=== PATIENT | male | born 1980 | race Two or more races ===

== ENCOUNTER 2020-09-15 10:58 | Emergency (ER) | payer MEDICAID ==
[2020-09-15] MEDS ORDERED: Sodium Chloride 0.9% 10 ML Syringe FLUSH PRN (11:21)
--- NOTE | 2020-09-15 11:27 | EDM.PDOC ---
ED HPI GENERAL MEDICAL PROBLEM - General Chief Complaint: Cardiovascular Problem Stated Complaint: HIGH BP Time Seen by Provider: 09/15/20 11:08 Source of Information: Reports: Patient, RN Notes Reviewed History Limitations: Reports: No Limitations - History of Present Illness INITIAL COMMENTS - FREE TEXT/NARRATIVE: Patient is a 40-year-old male who presents to the ED for his elevated blood pressure reading. Patient notes that he lost his job in January 2020, and has been at home with his , and 3 young children during this time. He also notes that stress levels seem to be quite high in the home. 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 It was at the health checkup for the new job, that his blood pressure was re vealed to be high at 177 systolically. They referred him to a clinic or ER for further management. He is denying any headache, blurred vision or double vision, any dizziness or lightheadedness, no chest pain. He is not short of breath, no has no cough or other sick symptoms. He states that he is not aware of any high blood pressure at home in the past. - Related Data Allergies Allergy/AdvReac Type Severity Reaction Status Date / Time No Known Allergies Allergy Verified 09/15/20 11:11 Home Meds: Home Meds . [No Known Home Meds] 09/15/20 [History] Past Medical History - Past Health History Medical/Surgical History: Denies Medical/Surgical History ED ROS GENERAL - Review of Systems Review Of Systems: Comprehensive ROS is negative, except as noted in HPI. ED EXAM, GENERAL - Physical Exam Exam: See Below Exam Limited By: No Limitations General Appearance: Alert, WD/WN, No Apparent Distress Respiratory/Chest: No Respiratory Distress, Lungs Clear, Normal Breath Sounds, No Accessory Muscle Use, Chest Non-Tender Cardiovascular: Normal Peripheral Pulses, Regular Rate, Rhythm, No Murmur Peripheral Pulses: 2+: Radial (L), Radial (R) GI/Abdominal: Normal Bowel Sounds, Soft, Non-Tender, No Distention, No Mass Extremities: Normal Inspection, Normal Capillary Refill Neurological: Alert, Oriented, Normal Cognition, No Motor/Sensory Deficits Psychiatric: Normal Affect, Normal Mood Skin Exam: Warm, Dry, Intact, Normal Color, No Rash #1 Interpretation EKG Date: 12/03/20 Time: 11:29 Rhythm: NSR Rate (Beats/Min): 84 [place]: Normal P-Wave: Present QRS: Normal ST-T: Normal QT: Normal Comparison: NA - No Prior EKG EKG Interpretation Comments: No obvious ischemia or acute ST changes noted, reviewed by myself and Dr. Magaña. Course - Vital Signs Last Recorded V/S: Last Vital Signs Temp 97.0 F 09/15/20 11:08 Pulse 78 09/15/20 11:08 Resp 14 09/15/20 11:08 BP 164/112 H 09/15/20 11:45 Pulse Ox 98 09/15/20 11:30 - Orders/Labs/Meds Orders: Active Orders 24 hr Category Date Time Status EKG Documentation Completion [RC] STAT Care 09/15/20 11:21 Ordered Peripheral IV Care [RC] . DIRECTED Care 09/15/20 11:21 Ordered Chest 1V Frontal [CR] Stat Exams 09/15/20 11:21 Ordered Sodium Chloride 0.9% [Saline Flush] Med 09/15/20 11:21 Ordered 10 ml FLUSH ASDIRECTED PRN Peripheral IV Insertion Adult [OM.PC] Stat Oth 09/15/20 11:21 Ordered Medication Orders Sodium Chloride (Saline Flush) 10 ml FLUSH ASDIRECTED PRN PRN Reason: Keep Vein Open Last Admin: 09/15/20 11:25 Dose: 10 ml Documented by: TITO Labs: Laboratory Tests 09/15/20 09/15/20 09/15/20 Range/Units 11:15 11:15 11:15 WBC 6.06 (4.23-9.07) K/mm3 RBC 5.39 (4.63-6.08) M/mm3 Hgb 15.5 (13.7-17.5) gm/dl Hct 43.1 (40.1-51.0) % MCV 80.0 (79.0-92.2) fl MCH 28.8 (25.7-32.2) pg MCHC 36.0 H (32.2-35.5) g/dl RDW Std Deviation 38.5 (35.1-43.9) fL Plt Count 180 (163-337) K/mm3 MPV 11.0 (9.4-12.3) fl Neut % (Auto) 52.2 (34.0-67.9) % Lymph % (Auto) 40.8 (21.8-53.1) % [place] % (Auto) 5.8 (5.3-12.2) % Eos % (Auto) 0.7 L (0.8-7.0) Baso % (Auto) 0.3 (0.1-1.2) % Neut # (Auto) 3.17 (1.78-5.38) K/mm3 Lymph # (Auto) 2.47 (1.32-3.57) K/mm3 [place] # (Auto) 0.35 (0.30-0.82) K/mm3 Eos # (Auto) 0.04 (0.04-0.54) K/mm3 Baso # (Auto) 0.02 (0.01-0.08) K/mm3 PT 10.8 (9.7-12.0) SECONDS INR 1.01 APTT 26.8 (21.7-31.4) SECONDS Sodium 136 (136-145) mEq/L Potassium 3.7 (3.5-5.1) mEq/L Chloride 101 (98-107) mEq/L Carbon Dioxide 26 (21-32) mEq/L Anion Gap 12.7 (5-15) BUN 22 H (7-18) mg/dL Creatinine 1.2 (0.7-1.3) mg/dL Est Cr Clr Drug Dosing 88.90 mL/min Estimated GFR (MDRD) > 60 (>60) mL/min BUN/Creatinine Ratio 18.3 H (14-18) Glucose 244 H (74-106) mg/dL Calcium 9.2 (8.5-10.1) mg/dL Magnesium 1.9 (1.8-2.4) mg/dl Total Bilirubin 1.0 (0.2-1.0) mg/dL AST 129 H (15-37) U/L ALT 344 H (16-63) U/L Alkaline Phosphatase 81 (46-116) U/L Troponin I < 0.017 (0.00-0.056) ng/mL Total Protein 8.3 H (6.4-8.2) g/dl Albumin 3.6 (3.4-5.0) g/dl Globulin 4.7 gm/dL Albumin/Globulin Ratio 0.8 L (1-2) Meds: Medications Generic Name Dose Route Start Last Admin Trade Name Cynthia PRN Reason Stop Dose Admin Sodium Chloride 10 ml 09/15/20 11:21 09/15/20 11:25 Saline Flush FLUSH 10 ml ASDIRECTED PRN Administration Keep Vein Open Discontinued Medications Generic Name Dose Route Start Last Admin Trade Name Freq PRN Reason Stop Dose Admin Hydrochlorothiazide 25 mg 09/15/20 12:05 Hydrochlorothiazide PO 09/15/20 12:06 ONETIME ONE - Re-Assessments/Exams Free Text/Narrative Re-Assessment/Exam: 09/15/20 11:28 Patient presents to the ED for evaluation of his elevated blood pressure. We will get some baseline labs to see if there is any underlying metabolic abnormalities. We will keep an eye on his blood pressure while being in the ER, and hope that lowers itself otherwise he might have to start on some low-dose blood pressure medication. 09/15/20 12:13 Patient's blood pressure has come down to 165/114. This is still slightly elevated, and I would assume that the possible employer that sent him here would like his blood pressure little bit lower than this. We will start him on 25 mg hydrochlorothiazide daily for initial management and have him follow-up with regular care provider. Departure - Departure Time of Disposition: 12:14 Disposition: Home, Self-Care 01 Condition: Good Clinical Impression: Elevated blood pressure reading in office without diagnosis of hypertension, Elevated random blood glucose level Instructions: Preventing Hypertension, Hyperglycemia, [id number] Referrals: PCP,None [Primary Care Provider] - Forms: ED Department Discharge Additional Instructions: You were evaluated in the ER today for your elevated blood pressure readings. Your blood pressure did come down to an acceptable level to be discharged from the ER, however you will be started on a low-dose blood pressure medication to help further lower this number. Please take 1 tablet daily to help manage your blood pressure. In order to accurately take your blood pressure, you will need to do this at least twice a day, sit down in a calm cool collected state, for at least a minute or 2 and then take your blood pressure and record this number on a sheet of paper. Your blood sugar was also elevated at today's visit, please try to be more wary of your dietary choices. If you did not have a primary care provider already, I recommend that you follow-up with a provider in any clinic, any family practice provider would be able to provide you with the services. Our clinic telephone number [phone], the [facility] number is [phone]. Please call in the morning to obtain an appointment with the provider, for follow-up of your symptoms that prompted your ER visit today. Please return to the ER at any time if symptoms change or worsen. Sepsis Event Note (ED) - Evaluation Sepsis Screening Result: No Definite Risk - Focused Exam Vital Signs: Vital Signs Temp Pulse Resp BP Pulse Ox 09/15/20 11:45 164/112 H 09/15/20 11:30 179/127 H 98 09/15/20 11:08 97.0 F 78 14 202/121 H 99 - My Orders Last 24 Hours: My Active Orders 09/15/20 11:21 EKG Documentation Completion [RC] STAT Peripheral IV Care [RC] . DIRECTED Chest 1V Frontal [CR] Stat Sodium Chloride 0.9% [Saline Flush] 10 ml FLUSH ASDIRECTED PRN Peripheral IV Insertion Adult [OM.PC] Stat - Assessment/Plan Last 24 Hours: My Active Orders 09/15/20 11:21 EKG Documentation Completion [RC] STAT Peripheral IV Care [RC] . DIRECTED Chest 1V Frontal [CR] Stat Sodium Chloride 0.9% [Saline Flush] 10 ml FLUSH ASDIRECTED PRN Peripheral IV Insertion Adult [OM.PC] Stat
[2020-09-15] MEDS ORDERED: Hydrochlorothiazide 25 MG Tab PO ONE (12:05)
--- NOTE | 2020-09-15 13:31 | CR ---
Chest: Portable view of the chest was obtained. Comparison: No prior chest imaging is available. Findings: Heart and mediastinum: Heart and mediastinum appear within normal limits. No parenchymal mass is appreciated. Lungs: Lungs are clear with no acute parenchymal change. No pleural thickening is seen. Osseous: No discrete osseous abnormalities are appreciated. Impression: 1. Nothing acute is appreciated on portable chest x-ray. Diagnostic code #1
== END 2020-09-15 12:50 | disposition home or self-care (01) ==
LOC: JD.ED 10:58
DX: R03.0 Elevated blood-pressure reading, without diagnosis of hypertension (principal); R73.9 Hyperglycemia, unspecified
CPT/HCPCS: 36415; 71045; 80053; 83735; 84484; 85025; 85610; 85730; 93005; 99284; A9270; 93010

== ENCOUNTER 2021-10-28 19:17 | Emergency (ER) | payer BC ==
[2021-10-28] MEDS ORDERED: Acetaminophen 325 MG Tab PO ONE (20:12)
[2021-10-28 20:32] LABS: CORONAVIRUS COVID-19 NAA POSITIVE (NEGATIVE)
== END 2021-10-28 21:05 | disposition home or self-care (01) ==
LOC: JD.ED 19:17
DX: U07.1 COVID-19 (principal); E11.9 Type 2 diabetes mellitus without complications; I10 Essential (primary) hypertension; Z79.84 Long term (current) use of oral hypoglycemic drugs; Z79.899 Other long term (current) drug therapy
CPT/HCPCS: 0241U; 99284; A9270

== ENCOUNTER 2022-10-12 18:00 | Emergency (ER) | payer BC ==
[2022-10-12] MEDS ORDERED: Lactated Ringers 1,000 ML IV ONE ×2 (19:36→22:09)
== END 2022-10-12 23:43 | disposition home or self-care (01) ==
LOC: JD.ED 18:00
DX: E11.65 Type 2 diabetes mellitus with hyperglycemia (principal); I10 Essential (primary) hypertension; Z79.84 Long term (current) use of oral hypoglycemic drugs
CPT/HCPCS: 36415; 36600; 71045; 80053; 81001; 82803; 82947; 83605; 83690; 83735; 84100; 84484; 85025; 93005; 96360; 96361; 99285; J7120

== ENCOUNTER 2024-03-02 19:06 | Emergency (ER) | payer SELFPAY ==
[2024-03-02] MEDS ORDERED: Sodium Chloride 0.9% 10 ML Syringe FLUSH PRN (20:33)
[2024-03-02 20:47] LABS: BASOPHILS PERCENT AUTO 0.5 % (0.0-1.0); EOSINOPHILS PERCENT AUTO 0.5 % (0.0-6.0); HEMATOCRIT 43.3 % (42.0-52.0); HEMOGLOBIN 15.9 gm/dl (14.0-18.0); IMMATURE GRAN ABSOLUTE AUTO 0.01 K/mm3 (0.00-0.05); IMMATURE GRAN PERCENT AUTO 0.1 % (0.0-0.4); LYMPHOCYTES ABSOLUTE AUTO 2.9 K/mm3 (1.0-4.8); LYMPHOCYTES PERCENT AUTO 34.3 % (24.0-44.0); MEAN CORPUSCULAR HGB CONC 36.7 g/dl (32.0-36.0); MEAN PLATELET VOLUME 10.7 fl (9.4-12.4); MONOCYTES ABSOLUTE AUTO 0.4 K/mm3 (0.0-0.8); MONOCYTES PERCENT AUTO 4.6 % (0.0-8.0); PLATELET COUNT,PLT 219 K/mm3 (150-400); RED BLOOD CELL COUNT 5.48 M/mm3 (4.52-5.90); WHITE BLOOD CELL COUNT,WBC 8.35 K/mm3 (3.9-11.3)
[2024-03-02] MEDS: Iopamidol 755 Mg/ML 100 ML Bottle IVPUSH ONE (21:03)
[2024-03-02 21:11] LABS: A/G RATIO 0.9 (1-2); ALANINE AMINOTRANSFERASE,ALT 33 U/L (16-63); ALBUMIN 4.2 g/dl (3.4-5.0); ALKALINE PHOSPHATASE 76 U/L (46-116); ANION GAP 20.7 (5-15); ASPARTATE AMNIOTRANSFERASE,AST 18 U/L (15-37); BILIRUBIN TOTAL 1.5 mg/dL (0.2-1.0); BLOOD UREA NITROGEN,BUN 21 mg/dL (7-18); BUN/CREATININE RATIO 16.2 (14-18); CALCIUM 10.1 mg/dL (8.5-10.1); CARBON DIOXIDE,CO2 22 mEq/L (21-32); CHLORIDE,CL 92 mEq/L (98-107); CREATININE 1.3 mg/dL (0.7-1.3); ESTIMATED GFR 71 mL/min (>60); POTASSIUM,K 4.7 mEq/L (3.5-5.1); PROTEIN TOTAL,TP 8.7 g/dl (6.4-8.2); SODIUM,NA 130 mEq/L (136-145); TROPONIN I HIGH SENSITIVITY 5 pg/mL (<=76)
[2024-03-02] MEDS ORDERED: Sodium Chloride 0.9% 100 ML IV SCH (21:15)
[2024-03-02 21:18] LABS: GLUCOSE RANDOM 508 mg/dL (70-99)
[2024-03-02 21:21] LABS: INR 0.96; PROTHROMBIN TIME 10.3 SECONDS (9.7-12.0)
[2024-03-02 21:23] LABS: PTT,PARTIAL THROMBOPLSTIN TIME 23.8 SECONDS (21.7-31.4)
[2024-03-02 22:06] LABS: APPEARANCE,URINE CLEAR (Clear); BILIRUBIN,URINE NEGATIVE (Negative); COLOR,URINE LIGHT YELLOW (Yellow); GLUCOSE,URINE 3+ (Negative); KETONES,URINE 2+ (Negative); LEUKOCYTE ESTERASE,URINE NEGATIVE (Negative); NITRITE,URINE NEGATIVE (Negative); OCCULT BLOOD,URINE NEGATIVE (Negative); PROTEIN,URINE 2+ (Negative); UROBILINOGEN,URINE 0.2 (0.2-1.0)
[2024-03-02 22:14] LABS: RBC,URINE 0-5 /hpf (0-5); SQUAMOUS EPITHELIAL CELLS,UR 0-5 /hpf (0-5); WBC,URINE 0-5 /hpf (0-5)
[2024-03-02 22:15] LABS: BACTERIA,URINE FEW /hpf (FEW); MUCUS,URINE FEW /hpf (FEW)
[2024-03-02 22:36] LABS: BASE EXCESS ARTERIAL -1.1 (-2-2.0); BICARBONATE,ARTERIAL 23.8 meq/L (22.0-26.0); PCO2 ARTERIAL 42.7 mmHg (35.0-45.0)
[2024-03-02] MEDS: Insulin Lispro 100 Unit/ML 3 ML KwikPen SUBCUT ONE (22:39)
[2024-03-02] MEDS: Sodium Chloride 0.9% 1,000 ML IV ONE (22:58)
[2024-03-02 23:41] LABS: ANION GAP 16.5 (5-15); BUN/CREATININE RATIO 17.3 (14-18); CALCIUM 9.8 mg/dL (8.5-10.1); CREATININE 1.1 mg/dL (0.7-1.3); EST CRCL DRUG DOSING (CG) 82.63 mL/min; POTASSIUM,K 4.5 mEq/L (3.5-5.1)
[2024-03-02] MEDS: Insulin Regular in 0.9 % NACL 100 ML IV SCH (23:50)
[2024-03-02] MEDS: Sodium Chloride 0.45% with KCl 1,000 ML IV SCH (23:53)
== END 2024-03-03 02:06 ==
LOC: JD.ED 19:06
DX: E11.10 Type 2 diabetes mellitus with ketoacidosis without coma (principal); I66.02 Occlusion and stenosis of left middle cerebral artery; I10 Essential (primary) hypertension; Z79.84 Long term (current) use of oral hypoglycemic drugs; Z79.899 Other long term (current) drug therapy
CPT/HCPCS: 36415; 36600; 70450; 70496; 70498; 80048; 80053; 81001; 82803; 82947; 83605; 83930; 84484; 85025; 85610; 85730; 93005; 96361; 96365; 99285; J1815; J3480; J7030; Q9967; 93010

== ENCOUNTER 2025-04-01 08:13 | Day surgery (SDC) | payer BC ==
[2025-04-01] MEDS: Polymyxin B/Trimethoprim 10 ML Bottle EYELF SCH (07:26)
[2025-04-01] MEDS: Brimonidine 0.2% Ophth Soln 5 ML Bottle EYELF SCH (07:30)
[2025-04-01] MEDS: Phenylephrine 2.5% Ophth Soln 2 ML Bot EYELF SCH (07:35)
[2025-04-01] MEDS: Tropicamide 1% Ophth Soln 3 ML Bottle EYELF SCH (07:40)
[2025-04-01] MEDS: Tetracaine HCl/PF 0.5% 4 ML Bottle EYEBOTH SCH (08:20)
[2025-04-01] MEDS: Lidocaine 1% PF 2 ML SDV INJECT SCH (09:13)
[2025-04-01] MEDS: Cefuroxime 10 MG/ML SYRINGE EYELF SCH (09:29)
[2025-04-01] MEDS: Pilocarpine 4% Ophth Soln 15 ML Bot EYELF SCH (09:30)
== END 2025-04-01 09:36 | disposition home or self-care (01) ==
LOC: JD.SDS 08:13
PROVIDERS: ATTEND Ophthalmology
DX: E10.36 Type 1 diabetes mellitus with diabetic cataract (principal); H25.813 Combined forms of age-related cataract, bilateral; H40.013 Open angle with borderline findings, low risk, bilateral; H16.103 Unspecified superficial keratitis, bilateral; H16.223 Keratoconjunctivitis sicca, not specified as Sjogren's, bilateral; H02.831 Dermatochalasis of right upper eyelid; H02.834 Dermatochalasis of left upper eyelid; H57.813 Brow ptosis, bilateral; I10 Essential (primary) hypertension; E78.2 Mixed hyperlipidemia; Z79.899 Other long term (current) drug therapy; Z79.84 Long term (current) use of oral hypoglycemic drugs
CPT/HCPCS: 66984; A9270; J3490

== ENCOUNTER 2025-05-06 07:05 | Day surgery (SDC) | payer BC ==
[2025-05-06] MEDS: Tetracaine HCl/PF 0.5% 4 ML Bottle EYEBOTH SCH (06:46)
[2025-05-06] MEDS: Lidocaine 1% PF 2 ML SDV INJECT SCH (06:47)
[2025-05-06] MEDS: Pilocarpine 4% Ophth Soln 15 ML Bot EYERT SCH (06:47)
[2025-05-06] MEDS: Cefuroxime 10 MG/ML SYRINGE EYERT SCH (06:47)
[2025-05-06] MEDS: Polymyxin B/Trimethoprim 10 ML Bottle EYERT SCH (06:47)
[2025-05-06] MEDS: Tropicamide 1% Ophth Soln 3 ML Bottle EYERT SCH (07:28)
== END 2025-05-06 08:42 | disposition home or self-care (01) ==
LOC: JD.SDS 07:05
PROVIDERS: ATTEND Ophthalmology
DX: E10.36 Type 1 diabetes mellitus with diabetic cataract (principal); H25.811 Combined forms of age-related cataract, right eye; H52.31 Anisometropia; I10 Essential (primary) hypertension; Z96.1 Presence of intraocular lens; Z79.4 Long term (current) use of insulin; Z79.82 Long term (current) use of aspirin; Z79.899 Other long term (current) drug therapy
CPT/HCPCS: 66984; A9270; J0697; 00142; J3490